=== PATIENT | female | born 1955 | race African-American/Black ===

== ENCOUNTER 2016-10-01 00:13 | Emergency (ER) | payer OTHER ==
[2016-10-01] MEDS ORDERED: EPINEPHrine/PF 1 MG/1 ML (1:1,000) AMPULE ONE ×2 (00:19→00:21)
[2016-10-01] MEDS ORDERED: methylPREDNISolone NA SUCC 125 MG/2 ML VIAL ONE (00:20)
[2016-10-01] MEDS ORDERED: FAMOTIDINE 20 MG/50 ML IVPB 50 ML IVPB ONE ×2 (00:20→00:37)
[2016-10-01] MEDS ORDERED: ALBUTEROL SO4 2.5/IPRATROPIUM 0.5 INH SOL 3 ML VIAL.NEB. NEB ONE (00:22)
[2016-10-01 00:30] VITALS: TEMP 98.2; BMI 24.2
[2016-10-01] MEDS ORDERED: ACETAMINOPHEN 325 MG TABLET (FP) PO ONE (00:36)
[2016-10-01] MEDS ORDERED: methylPREDNISolone NA SUCC 125 MG/2 ML VIAL IVPB ONE (00:36)
--- NOTE | 2016-10-01 00:36 | PDOC ---
History of Present Illness - General History Source: Patient Exam Limitations: No Limitations - History of Present Illness Initial Comments: 10/01/16 00:40 The patient is a 61-year-old female, with no significant past medical history, who presents to the ED s/p allergic reaction after eating shrimp. 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 She usually experiences lip swelling and develops hives after eating shrimp, but this time she also experienced coughing associated with a choking sensation. The patient denies having any other symptoms. Allergies: morphine and shrimp. <Fernanda Castanon - Last Filed: 10/01/16 00:51> <Teressa Calderón - Last Filed: 10/01/16 01:35> <Jena Villanueva - Last Filed: 10/04/16 22:12> - General Chief Complaint: Allergic Reaction Stated Complaint: ALLERGIC REACTION Time Seen by Provider: 10/01/16 00:25 Past History <Fernanda Castanon - Last Filed: 10/01/16 00:51> - Psycho/Social/Smoking Cessation Hx Suicidal Ideation: No Smoking History: Never smoked Have you smoked in the past 12 months: No Information on smoking cessation initiated: No Hx Alcohol Use: No Drug/Substance Use Hx: No <Teressa Calderón - Last Filed: 10/01/16 01:35> <Jena Villanueva - Last Filed: 10/04/16 22:12> - Past Medical History Allergies/Adverse Reactions: Allergies Allergy/AdvReac Type Severity Reaction Status Date / Time morphine Allergy Verified 10/01/16 00:33 shrimp Allergy Verified 10/01/16 00:28 Home Medications: Ambulatory Orders Atenolol [Tenormin -] 25 mg PO DAILY 10/01/16 Diphenhydramine HCl [Benadryl -] 25 mg PO Q6H #28 capsule 10/01/16 Epinephrine [Epipen 2-Sivakumar] 0.3 mg IJ ASDIR #1 kit 10/01/16 Prednisone [Deltasone -] 2 tab PO DAILY #10 tablet 10/01/16 Review of Systems - Review of Systems Able to Perform ROS?: Yes Comments:: 10/01/16 00:41 Adult Comprehensive CONSTITUTIONAL: Absent: fever, no chills, no fatigue EYES: Absent: visual changes ENT: Present: choking sensation Absent: ear pain, no sore throat CARDIOVASCULAR: Absent: chest pain, no palpitations RESPIRATORY: Present: cough Absent: no SOB GI: Absent: abdominal pain, no nausea, no vomiting, no constipation, no diarrhea GENITOURINARY: Absent: dysuria, no frequency, no hematuria MUSKULOSKELETAL: Absent: back pain, no arthralgia, no myalgia SKIN: Present: lip swelling, hives NEURO: Absent: headache <Fernanda Castanon - Last Filed: 10/01/16 00:51> *Physical Exam - Vital Signs Last Vital Signs Temp Pulse Resp BP Pulse Ox 98.2 F 80 18 181/120 100 10/01/16 00:29 10/01/16 00:10/01/16 00:10/01/16 00:10/01/16 00:29 - Physical Exam Comments: 10/01/16 00:43 GENERAL: Well-appearing, well-nourished. (+)Coughing, very anxious. HEENT: Normocephalic, atraumatic. PERRL, EOM intact. CARDIOVASCULAR: Normal S1, S2. Regular rate and rhythm. PULMONARY: Clear to auscultation bilaterally. ABDOMEN: Soft, non-distended, non-tender. EXTREMITIES: Normal ROM in all four extremities. No gross deformities. SKIN: (+)Scattered hives on face and neck. Slightly swollen uvula. Maxillary lip swelling. Warm, dry. NEUROLOGICAL: No focal neurological deficits. <Fernanda Castanon - Last Filed: 10/01/16 00:51> - Vital Signs Last Vital Signs Temp Pulse Resp BP Pulse Ox 98.2 F 80 18 181/120 100 10/01/16 00:29 10/01/16 00:29 10/01/16 00:29 10/01/16 00:29 10/01/16 00:29 <Teressa Calderón - Last Filed: 10/01/16 01:35> - Vital Signs Last Vital Signs Temp Pulse Resp BP Pulse Ox 98.2 F 82 18 145/80 96 10/01/16 00:29 10/01/16 01:30 10/01/16 00:29 10/01/16 01:30 10/01/16 01:30 <Jena Villanueva - Last Filed: 10/04/16 22:12> ED Treatment Course - Medications Given in the ED: ED Medications Discontinued Medications Generic Name Dose Route Start Last Admin Trade Name Ja PRN Reason Stop Dose Admin Acetaminophen 650 mg 10/01/16 00:36 10/01/16 00:47 Tylenol - PO 10/01/16 00:37 650 mg ONCE ONE Administration Diphenhydramine HCl 50 mg 10/01/16 00:38 10/01/16 00:47 Benadryl Injection - IVPUSH 10/01/16 00:39 50 mg ONCE ONE Administration Epinephrine HCl 0.3 mcg 10/01/16 00:37 10/01/16 00:47 Epinephrine 1:1000 P/F - SQ 10/01/16 00:38 0.3 mcg ONCE STA Administration Famotidine/Sodium Chloride 50 mls @ 100 mls/hr 10/01/16 00:37 10/01/16 00:47 Pepcid 20 Mg Premixed Ivpb - IVPB 10/01/16 01:06 100 mls/hr ONCE ONE Administration Methylprednisolone Sodium Succinate 125 mg 10/01/16 00:36 10/01/16 00:47 Solu-Medrol - IVPB 10/01/16 00:37 125 mg ONCE ONE Administration Nitroglycerin 0.4 mg 10/01/16 00:39 10/01/16 00:47 Nitrostat - SL 10/01/16 00:40 0.4 mg ONCE ONE Administration <Jena Villanueva - Last Filed: 10/04/16 22:12> Medical Decision Making - Critical Care Time Total Critical Care Time (minutes): 30 Critical Care Statement: The care of this patient involved high complexity decision making to prevent further life threatening deterioration of the patient 's condition and/or to evalute & treat vital organ system(s) failure or risk of failure. <Fernanda Castanon - Last Filed: 10/01/16 00:51> - Medical Decision Making 10/01/16 00:48 61-year-old female presents with choking sensation and coughing after eating shrimp. In the past. She had had some lip swelling and hives after eating seafood but never had an EpiPen Past medical history significant for hypertension for which she takes atenolol Primary medical doctor - not Associated with [facility]. Patient is visiting from [place], [place] Patient presented with urticaria, hives to her face, back of her neck, slightly swollen uvula and coughing She received subcutaneous epi, IV Solu-Medrol, IV Pepcid, IV Benadryl, Combivent nebulizer treatment -Dr. Villanueva gave her 0.4 sublingual nitroglycerin tablet 10/01/16 01:33 Repeat DS=766/80 pulse=82 pulse ox=96% on room air Patient does not have a headache, she does not have chest pain, she is not coughing, her lungs are clear to auscultation Her hives have resolved, her throat feels normal -she Does have a mild residual swelling of her maxillary lip <Teressa Calderón - Last Filed: 10/01/16 01:35> - Medical Decision Making 10/04/16 22:12 Pt was discharged once she was breathing easily and she understands that benadryl and prednisone must continue and that she needs to follow with an inhalation therapy teacher. She also has a prescription for an epipen. <Jena Villanueva - Last Filed: 10/04/16 22:12> *DC/Admit/Observation/Transfer - Attestations Scribe Attestion: 10/01/16 00:43 Documentation prepared by Fernanda Castanon, acting as medical terminologist for Teressa Calderón MD. <Fernanda Castanon - Last Filed: 10/01/16 00:51> <Teressa Calderón - Last Filed: 10/01/16 01:35> <Jena Villanueva - Last Filed: 10/04/16 22:12> Diagnosis at time of Disposition: Allergic reaction to shellfish - Discharge Dispostion Disposition: HOME Condition at time of disposition: Stable - Prescriptions Prescriptions: Diphenhydramine HCl [Benadryl -] 25 mg PO Q6H #28 capsule Prednisone [Deltasone -] 2 tab PO DAILY #10 tablet Epinephrine [Epipen 2-Sivakumar] 0.3 mg IJ ASDIR #1 kit - Referrals Referrals: STAFF,NOT ON [Primary Care Provider] - - Patient Instructions Printed Discharge Instructions: DI Shellfish Allergy Additional Instructions: PLEASE AVOID SEAFOOD PLEASE BOATING SAFETY OFFICER THE EPI PEN AT YOUR PHARMACY
[2016-10-01] MEDS ORDERED: EPINEPHrine/PF 1 MG/1 ML (1:1,000) AMPULE SQ STA (00:37)
[2016-10-01] MEDS ORDERED: NITROGLYCERIN SUBLINGUAL 1/150 0.4 MG TAB SL ONE (00:39)
[2016-10-01] MEDS ORDERED: ACETAMINOPHEN 325 MG TABLET (FP) ONE (00:43)
[2016-10-01] MEDS ORDERED: diphenhydrAMINE HCL 25 MG CAPSULE (FP) PO ONE ×2 (02:13→02:15)
[2016-10-01 03:22] VITALS: BP 145/80; PULSE 82
== END 2016-10-01 02:46 | disposition home or self-care (01) ==
LOC: JER 00:13
PROC: 3E033GC Introduction of Other Therapeutic Substance into Peripheral Vein, Percutaneous Approach (ICD-10-PCS; principal; 2016-10-01)
PROC: 3E0333Z Introduction of Anti-inflammatory into Peripheral Vein, Percutaneous Approach (ICD-10-PCS; 2016-10-01)
PROC: 3E033GC Introduction of Other Therapeutic Substance into Peripheral Vein, Percutaneous Approach (ICD-10-PCS; 2016-10-01)
PROC: 3E0333Z Introduction of Anti-inflammatory into Peripheral Vein, Percutaneous Approach (ICD-10-PCS; 2016-10-01)
DX: T78.1XXA Other adverse food reactions, not elsewhere classified, initial encounter (principal); Z91.013 Allergy to seafood
CPT/HCPCS: 99283-25